=== PATIENT | male | born 1980 | race Caucasian/White ===

== ENCOUNTER 2016-09-19 17:22 | Inpatient (IN) | payer MEDICAID ==
[~2016-09-19] VITALS: Ht 170.2 cm; Wt 169.0 kg
--- NOTE | ~2016-09-19 | CO ---
ADMIT: 09/19/2016 RM/LOC: 305 [facility] MR#: [id number] [address] [address] KIRAN LIMA [address] [place] [phone] Consultation SEX: M AGE: 36 : 1980 DATE OF CONSULTATION: 09/20/2016 ATTENDING PHYSICIAN: Rom Elise CONSULTING PHYSICIAN: Isac Leon MD HISTORY OF PRESENT ILLNESS: This is a 36-year-old gentleman, date of 1980, had the previous hospitalization here and came in through the ER yesterday and got admitted. He presented with shortness of breath and chest pain. He was put on progressive care unit, but he was located in the intensive care. On admission, he had a chest x-ray, which was not very revealing, but a CT angiogram done, which did not show any pulmonary embolism, but there was a right middle lobe pneumonia. The patient has been admitted, started on Azactam and levofloxacin. His white count was markedly elevated with a white count of 22,000, which subsequently has been 33,000; hemoglobin was 17.0; normal platelets. There were no blood gases. He was showing persistent hypoxia and he was falling asleep while they were trying to put him on BiPAP. I was contacted, I suggested a chest x-ray on him to be done as stat, which was suggestive of a severe respiratory acidosis with a pH of 7.054, PCO2 was 129.5, PO2 was 93.5, bicarb 35.4 and that was on mask at 15 L. Anesthesia was called in for intubation as I came over also to see the patient. Reviewing the records, he has had several hospitalizations before. He has diagnosis of sleep apnea, has not been lately able to put the CPAP because of the insurance issues. He has been a smoker for 20 plus years already, but reportedly quit smoking a year ago. He has diagnosis of asthma. On my evaluation, he is morbidly obese, weighs over 175 kg. He was obtunded, could be aroused when I kept shouting his name and his oxygen saturation was dipping in the 40s and 50s and when he would wake up, it will come up to 90%-91%. He was bagged while Anesthesia arrived at the scene and was intubated and placed on the ventilator and has been connected to propofol for sedation. When he was awake before the intubation, he was thrashing around and appeared to be rather confused. PHYSICAL EXAMINATION: Difficult to assess, he is morbidly obese, very short thick neck, very trace edema, diminished breath sounds, no heart murmur. Abdomen very grossly protuberant. LABORATORY DATA AND IMAGING: His chemistry shows normal potassium 4.6, blood sugar 160, creatinine 1.2, albumin was 3.1, mag 2.1. The hematology showing a white count of 33.6, hemoglobin 14, platelet count 180. He has received 5 L of IV fluid in the ER. His lactate level was 0.6. His hemoglobin A1c was 6, procalcitonin was 0.42. Urine analysis showed rare bacteria, 13 white count, it was hazy. There was no drug screen. I have reviewed the chest x-ray and the CT scan, he does have a right middle lobe pneumonia. IMPRESSION: 1. Ocdkq-aj-vdcmfbr respiratory failure, hypercapnic respiratory failure, needing mechanical ventilation. 2. Diagnosis of sleep apnea. ADMIT: 09/19/2016 RM/LOC: 305 [facility] MR#: [id number] [facility] [address] [address] JANIE, KIRAN Diego [address] [address] Consultation SEX: M AGE: 36 : 1980 3. Chronic tobacco use. 4. History of asthma. 5. Morbid exogenous obesity. RECOMMENDATIONS: He will require mechanical ventilation, bronchoscopy, central IV access, adequate antibiotics, and with his previous history of respiratory failure, need for a tracheostomy. I would not be surprised if he needs the tracheostomy once again, although that will depend on how he does over the next few days with intubation. An arterial line would be necessary as well. Overall, prognosis is guarded at this time. Isac Leon MD/ cora JOB #: [id number] CC: Rom Elise, Attending Physician Rom Elise, Family Physician Rom Elise MD
[~2016-09-19 17:22] MED LIST: CLARITIN DPS10 MG PO; HABITROL DPS21 MG TP; HCTZ12.5 MG PO; PROVENTIL HFA6.7 GM IH; PROVENTIL2.5 MG/0.5 IH; TYLENOL DPS325 MG PO
--- NOTE | 2016-09-24 10:29 | OR ---
ADMIT: 09/19/2016 RM/LOC: 305 [facility] MR#: [id number] [address] [address] KIRAN LIMA [address] [place] [phone] Operative/Delivery Room Report SEX: M AGE: 36 : 1980 SURGERY DATE: 09/20/2016 SURGEON: Isac Leon MD PROCEDURE: Bronchoscopy. PREOPERATIVE DIAGNOSES: 1. Acute on chronic hypercapnic respiratory failure. 2. Right middle lobe pneumonia. 3. Exogenous obesity. 4. History of previous respiratory failure requiring intubation and tracheostomy. 5. Diagnosis of obstructive sleep apnea. The patient has been earlier intubated by Anesthesia and is on the ventilator. He continues to remain hypoxic that was the reason for the bronchoscopy. On entering the trachea, it was apparent that endotracheal tube was actually in the right mainstem. It has been retracted, and the position has been corrected. There was very marked redness of the tracheobronchial tree, and there is tracheobronchial dynamic collapse is also noted. There was some mucus, but no mucus plug identified. Thorough irrigation done, which would be submitted for microbiological and cytological studies. Findings of tracheobronchial collapse have been discussed with the patient's , who has been present at the bedside. Isac Leon MD/ kimberleyl JOB #: [id number] CC: Rom Elise, Attending Physician Rom Elise, Family Physician Rom Elise MD
--- NOTE | 2016-10-01 08:53 | CO ---
ADMIT: 09/19/2016 RM/LOC: 303 [facility] MR#: [id number] [address] [address] KIRAN KIRKLAND [address] [place] [phone] Consultation SEX: M AGE: 36 : 1980 DATE OF CONSULTATION: 09/24/2016 ATTENDING PHYSICIAN: Rom Elise CONSULTING PHYSICIAN: Brionna Bedolla APRN TIME IN: 1105 hours. TIME OUT: 1135 hours. REASON FOR CONSULTATION: Supportive care consultation was requested by Dr. Elise for discussion of goals and also to determine medical decision making. HISTORY OF PRESENT ILLNESS: Mr. Kirkland is a 36-year-old, male with history of morbid obesity, as well as a history of asthma and ongoing tobacco use. He wears supplemental oxygen and also a CPAP at home. Apparently, he had not been wearing these things consistently per the records. It is of note that he was hospitalized in March of 2015 through May of 2015 with respiratory failure, asthma, as well as pneumonia. At that time, he did end up getting a tracheostomy and PEG tube. Up until his hospital stay, it sounds like he was living at home after going through all that. He was readmitted on 09/19 with hypoxia and respiratory failure. He is being treated for pneumonia and initially on sepsis criteria. He unfortunately ended up having to be intubated due to respiratory failure. At this point, there is plans for tracheostomy in the future if he is having a hard time coming off the vent and is requiring 100% FiO2 with a PEEP 20. Over the past day or so, he has had increasing issues with hypoxia. The original plan was to go forth with a tracheostomy today or tomorrow, however, this is currently on hold until he is more stable. There has been some concerns related to the patient as he has been quite adamantly shaking his head no when the tracheostomy is being discussed. Furthermore, there is some question as to who his medical decision maker is as he is from his . Due to his complexities, supportive care consultation was requested to discuss goals for care. In terms of advanced directives, the patient is a full code. He does not have a healthcare xqoyp-ug-tqmbohgy, or living will on file. The patient is still legally to his , Mary Lou Kirkland whose phone #[phone]. When asked if they were , the patient does nod his head yes. When asked if she is the person to make medical decisions for him, he nods his head yes again. Legally because they are still she would be his next of kin legal decision maker for medical decisions. I do have a call out to Risk Management and I am awaiting call back to confirm this. Symptomatically, the patient appears comfortable on the ventilator. He does appear weak and debilitated. PAST MEDICAL HISTORY: 1. Morbid obesity. 2. Hypertension. ADMIT: 09/19/2016 RM/LOC: 303 [facility] MR#: [id number] [address] [address] KIRAN KIRKLAND [facility] [address] Consultation SEX: M AGE: 36 : 1980 3. Asthma. 4. Thyroid disorder. 5. Sleep apnea. 6. Tobacco use with a potential history of COPD per the records. ALLERGIES: THE PATIENT IS ALLERGIC TO PENICILLIN AND AMOXICILLIN. CURRENT MEDICATIONS: Please see the patient's MAR for specific routes and dosages. His current medications are as follows: 1. Milk of magnesia. 2. Precedex. 3. Dulcolax. 4. Solu-Medrol. 5. Fentanyl. 6. Vancomycin. 7. Versed. 8. Nitro-Bid. 9. Levophed. 10.NovoLog. 11.Lovenox. 12.Zestril. 13.Claritin. 14.Singulair. 15.Glutose. 16.Glucagon. 17.D5 normal saline. 18.D50. 19.Protonix. 20.Azactam. 21.Ativan. 22.Diprivan. 23.Synthroid. 24.Nitro drip. 25.Maalox. 26.Tylenol. 27.Nitrostat. 28.Motrin. 29.Levaquin. 30.DuoNeb. SOCIAL HISTORY: The patient is , but from his per Nursing report. He has a smoking history. I do not know if he uses alcohol or illicit drugs. FUNCTIONAL REVIEW: At this point, I am not able to determine what his functional status was prior to admission. There are no family at the bedside currently. Currently, he is bed-bound. He is total care. He has minimal intake. He is sedated. His current palliative performance scale is a 10% to ADMIT: 09/19/2016 RM/LOC: 303 [facility] MR#: [id number] [address] [address] KIRAN KIRKLAND [address] [place] [phone] Consultation SEX: M AGE: 36 : 1980 20%. REVIEW OF SYSTEMS: A 10-point review of systems was attempted. However, due to the patient's mentation, and status this is unable to be obtained. PHYSICAL EXAMINATION: GENERAL: The patient is examined in the bed. He is in no acute distress. VITAL SIGNS: Temperature 97.8, pulse 100, respirations 21, blood pressure 109/51, oxygen 88% on 100% FiO2 on the vent. HEENT: Head is normocephalic. Pupils are not examined. Oral mucosa pink and moist with ET tube noted. Fair dentition from my limited exam. NECK: Thick. RESPIRATORY: Respirations are equal and nonlabored on the vent. Lungs are diminished throughout. CARDIOVASCULAR: Rate and rhythm regular without murmurs, rubs, or gallops. GASTROINTESTINAL: Obese. Bowel sounds are hypoactive. GENITOURINARY: He has a Villalobos draining clear yellow urine. MUSCULOSKELETAL: Generalized weakness. No obvious joint deformities. INTEGUMENTARY: Skin turgor is fair. NEUROLOGIC: He is sedated on the ventilator, but able to nod yes and no to questions. He does seem fairly appropriate when he is nodding yes and no. He will follow commands in terms of squeezing hands. PSYCHIATRIC: Calm and cooperative. I am unable to assess insight and judgment at this time. DIAGNOSTIC DATA: Sodium 137, potassium 5.5, BUN 47, creatinine 1.3, total protein 6.3, albumin 2.6. WBC 17.2, hemoglobin 13.2, hematocrit 44.7, and platelets are 246. IMPRESSION: 1. Physical debility. 2. Fatigue. 3. Malaise. 4. Morbid obesity. 5. Low albumin. 6. Acute respiratory failure. 7. Pneumonia. 8. Obstructive sleep apnea. 9. Asthma. 10.Tobacco use. 11.Palliative care. 12.The patient is a full code. PLAN OF TREATMENT: 1. At the time of assessment, the patient is sedated on the ventilator, but as mentioned above he can answer yes and no questions nodding his head. We discussed his status and he nods his head yes in understanding of what is going on with him in terms of his respiratory status. I did discuss ADMIT: 09/19/2016 RM/LOC: 303 [facility] MR#: [id number] [address] [address] KIRAN KIRKLAND [facility] [address] Consultation SEX: M AGE: 36 : 1980 the plans for the tracheostomy and he consistently shakes his head no vigorously. As mentioned, I cannot assess his insight and judgment, therefore, I am not able to determine if he understands the full complexities of what he is saying. I was very clear with him that if he cannot get off the ventilator and if he did not want to proceed with tracheostomy then he would and he responds by shrugging his shoulders. I asked him if this means that he does not care and he nods his head yes. 2. In terms of medical decision making. As mentioned above, the patient's is still legally to him. She would be the legal next of kin. However, I am confirming this with Risk Management. I did ask the patient if he wishes for his to make medical decisions for him and he nods his head yes, but again it is very difficult to determine if he understands the complexities of what he is saying. 3. At this time, the patient's is unavailable as she is at work until 2 p.m. I will try to reach her after she gets off work to discuss the patient's status and goals for the time ahead. 4. Overall this is a tough situation. At this point, the patient does seem adamant that he does not want to have a tracheostomy, however, I cannot determine if he has the insight and judgment to make these kinds of decisions due to his sedation and slight hypoxia. I questioned if there is a potential presence of depression as well which could be clouding his judgment. At this point, the legal decision maker would need to be his in terms of the plans for the time ahead. Pending how things go in the days ahead this case may benefit from an ethics consult. 5. We will continue to follow along in the care of this kind but complicated patient. We would like to thank Dr. Elise for the invitation to participate in this patient's care. Total consultation time was 30 minute from 1105 hours 1135 hours with 15 minutes from 1110 hours to 1125 hours spent [id number] with the patient discussing status and goals for the time ahead. I will call his later today to further discuss the situation. The plan of care was discussed with nursing and we will continue to follow along in the care of this patient. Brionna Bedolla APRN/ cora JOB #: [id number] CC: Rom Elise, Attending Physician Rom Elise, Family Physician
--- NOTE | 2016-10-05 14:38 | ER ---
ADMIT: 09/19/2016 RM/LOC: 305 [facility] MR#: [id number] [address] [place], [place] [address] KIRAN LIMA [address] [place] [phone] Emergency Room Report SEX: M AGE: 36 : 1980 DATE: 09/19/2016 HISTORY OF PRESENT ILLNESS: The patient is from [place]. He presents to the emergency room. He is 36 years of age with productive cough. He says he has had pneumonia in the past. He has clear phlegm originally, but then as he coughs, he has some tint of blood in it. He has been dizzy, nausea, weakness, and diaphoretic. He points to his right chest for discomfort. He has had associated symptoms, cough, shortness of breath. REVIEW OF SYSTEMS: Positive for recent illness, pneumonia, he has some anxiety. PAST MEDICAL HISTORY: Hypertension, chronic O2 at 3 L, hypothyroidism, morbid obesity. MEDICATIONS: 1. Claritin. 2. Ibuprofen. 3. Singulair. 4. Levothyroxine. 5. Lisinopril. 6. DayQuil. 7. NyQuil. ALLERGIES: HE IS ALLERGIC TO PENICILLIN. SOCIAL HISTORY: He drinks alcohol occasionally. PHYSICAL EXAMINATION: VITAL SIGNS: Blood pressure 126/82, heart rate is 124 with respirations of 37, temp is 99.4, O2 sats 88% on room air. GENERAL: The patient is moderately anxious, but is very pleasant. HEENT: Normal inspection. NECK: Supple. RESPIRATION: Respiratory distress, rhonchi right and left. CVS: Tachycardic. ABDOMEN: Morbidly obese, nontender. SKIN: Diaphoretic. EXTREMITIES: Well perfused. No edema noted. NEURO: Oriented x4. Mood and affect are appropriate. LABORATORY DATA: Sepsis protocol immediately started when the patient was seen in the emergency room. We have right now a urine that looks like a possible source of his issue, although we do have a CT of the chest pending. The urine shows urobilinogen 2.0 with very hazy, wbc's 13, leukocytes is 1+, rbc's is 4. His INR is less than 1, his D-dimer is 2.18, white count 22,000 with a left shift. EKG shows sinus tachycardia, rate at 122. Blood cultures were done and pending report. Lactic acid is 1.4. CMP totally normal except for a carbon dioxide, which is 35. The cardiac enzymes are all within normal limits. Influenza done and it was within normal limits. Procalcitonin 0.42, ADMIT: 09/19/2016 RM/LOC: 305 [facility] MR#: [id number] [address] [address] KIRAN LMIA [address] [place] [phone] Emergency Room Report SEX: M AGE: 36 : 1980 and he is B positive Rh. Dr. Elise was contacted, but we still have some diagnostics pending and a CT. He was contacted at 2004 hours. CLINICAL IMPRESSION: 1. Hypoxia. 2. Respiratory distress. 3. Morbid obesity. 4. Urinary tract infection. 5. Moderate sepsis. Orders still pending. The patient has received in the sepsis protocol the fluids, Decadron 20 mg IV, Tylenol 1 g p.o., and the fluid resuscitation was ordered, which the start time was 1900 hours and he received 1 L. the total mLs needed for this patient is 5346. ALBERT Soria / Adis Medellin MD / cora JOB #: [id number] CC: Rom Elise MD, Attending Physician Rom Elise MD, Family Physician
[2016-10-05] MEDS ORDERED: PROVENTIL HFA6.7 GM IH (20:33)
[2016-10-05] MEDS ORDERED: LASIX DPS40 MG PO (20:33)
[2016-10-05] MEDS ORDERED: CLARITIN DPS10 MG PO (20:33)
[2016-10-05] MEDS ORDERED: MONTELUKAST SOD10 MG PO (20:33)
[2016-10-05] MEDS ORDERED: MOTRIN IB200 MG PO (20:33)
[2016-10-05] MEDS ORDERED: SYNTHROID DPS0.05 MG PO (20:33)
[2016-10-05] MEDS ORDERED: ZESTRIL DPS10 MG PO (20:33)
[2016-10-05] MEDS ORDERED: DUONEB DPS3 ML PO (20:34)
[2016-10-05] MEDS ORDERED: TYLENOL DPS325 MG PO (20:34)
[2016-10-05] MEDS ORDERED: DELTASONE DPS10 MG PO (20:34)
[2016-10-05] MEDS ORDERED: DUONEB DPS3 ML IH (20:34)
--- NOTE | 2016-10-11 19:48 | HP ---
ADMIT: 09/19/2016 RM/LOC: 305 [facility] MR#: [id number] [address] [place], [place] [address] KIRAN LIMA [address] [place] [phone] History and Physical SEX: M AGE: 36 : 1980 DATE OF SERVICE: CHIEF COMPLAINT: Increased shortness of breath, chest pain on the right side, low-grade temp with a mild productive cough. HISTORY OF PRESENT ILLNESS: When the patient arrived to the ER, he was found to be hypoxic requiring increased oxygen demand. He is on oxygen at home and usually around 3 L, but tonight he was not using it. He mentioned that sometimes he does not use it consistently even though he knows he should. The patient states that yesterday, he was feeling fine and having problems when saw the doctor in [place] and overall felt good. He also mentions that he used to use a CPAP but was having some difficulty with a mass and then due to Medicaid loss. He has not been on his CPAP in quite a while. The patient states that he has had pneumonia in the past that required mechanical ventilation and trach and PEG, and today he again felt more wheezy. So, when he got to the ER, he was found to be hypoxic and was also diagnosed with a right lower lobe pneumonia. The patient had an elevated D-dimer but a negative CTA for pulmonary embolism. The patient states he is feeling much better now that he has gotten some breathing treatments. The patient is no longer having the chest pain this severe except with the above and coughing. PAST MEDICAL HISTORY: Significant for hypertension, asthma, thyroid disorder though he cannot tell me what type of thyroid disorder, sleep apnea, morbid obesity, and then he states he thinks he has a history of COPD and emphysema as well. FAMILY HISTORY: He says he has multiple family members with cancer but is not really sure exactly of the blood line. States that his family has a very complicated history. He does mention that his grandfather had emphysema and from emphysema. SOCIAL HISTORY: He is a former smoker. Smoked 2-3 packs a day for 21 years and now has quit for at least about almost a year. PAST SURGICAL HISTORY: Significant for tonsil and adenoidectomy. Also had a trach previously for pneumonia with acute respiratory failure in 2015. ALLERGIES: INCLUDE PENICILLIN. REVIEW OF SYSTEMS: CONSTITUTIONAL: Positive for headaches. He has had no fevers and no chills. HEENT: Again positive for headache. He has had some jaw pain. No sore throat. No rhinorrhea. No nasal congestion. HEART: Some chest pain, shortness of breath. No chest palpitations. LUNGS: Positive for cough, wheezing, and shortness of breath. ABDOMEN: No abdominal pain. No nausea, vomiting, or diarrhea. EXTREMITIES: No edema. No joint pain. No erythema as well. NEURO: He has not had any seizures or stroke-like activities. ADMIT: 09/19/2016 RM/LOC: 305 [facility] MR#: [id number] [address] [address] KIRAN LIMA [facility] [place] [phone] History and Physical SEX: M AGE: 36 : 1980 PHYSICAL EXAMINATION: GENERAL: No acute distress. Mildly increased respiratory rate and is on increased oxygen. He is alert and oriented x3. Very pleasant. HEENT: Normocephalic and atraumatic. Moist mucous membranes. Extraocular muscles are intact. Nasal cannula is in place. HEART: Regular rate and rhythm. No murmur. LUNGS: Wheezing bilaterally. He had an increased rhonchi on the right side and did have this mild increased work of breathing. ABDOMEN: Soft, nontender. Positive bowel sounds. He is morbidly obese. EXTREMITIES: No edema. 2+ pulses bilaterally. No erythema in his lower extremities. NEURO: Cranial nerves II through XII are grossly intact. LABORATORY AND X-RAY DATA: Labs done in the ER. Blood cultures are pending. Lactic acid is normal at 1.4. CMP; sodium, potassium, and chloride are normal. CO2 is slightly elevated at 35. Creatinine is 1.3. Glucose is 98. Calcium is 8.8. Phos is 2.9. Alkaline phosphatase is 116. AST is 20, ALT is 50, and magnesium is 2.1. CK was 235, MB was 2, troponin is less than 0.015. Influenza A and B were negative. Procalcitonin was within normal range. CBC did show an elevated white blood cell count of 22.0, hemoglobin 17.1, and platelets were normal at 213. UA shows positive leukocyte esterase, no nitrites. He had some trace protein. He did have an elevated D-dimer at 2.18. INR is less than 1. Chest x-ray again showed the right lower lobe pneumonia. CT per discussion with the ER showed no signs of pulmonary embolism. Radiology interpretation is pending. ASSESSMENT AND PLAN: This is a 36-year-old male with acute hypoxia, cough, shortness of breath, chest pain. 1. Pneumonia. 2. Acute on chronic hypoxic respiratory failure. 3. Morbid obesity. ADMIT: 09/19/2016 RM/LOC: 305 [facility] MR#: [id number] [address] [address] KIRAN LIMA [address] [place] [address] History and Physical SEX: M AGE: 36 : 1980 4. Sepsis. 5. Hypertension. 6. Sleep apnea. 7. Asthma. 8. Thyroid disorder. We will admit the patient in the hospital PCU status. We will start him on IV steroids. We will start him on antibiotics, Levaquin and aztreonam. Also, do DuoNeb q.4 hours as needed, CPAP per home settings. We will repeat CBC, CMP, lactic acid, and procalcitonin in the morning. We will trend cardiac enzymes. We will get a repeat chest x-ray in the morning, consult Pulmonology. Low sodium diet. Activity as tolerated. Daily I's and O's. Judith Jurado MD Resident / Rom Elise MD / cora JOB #: [id number] CC: Rom Elise, Attending Physician Rom Elise, Family Physician
--- NOTE | 2016-11-25 16:24 | DS ---
ADMIT: 09/19/2016 RM/LOC: [facility] MR#: [id number] [address] [address] KIRAN LIMA [address] [place] [id number] General Discharge Summary SEX: M AGE: 36 : 1980 ADMISSION DATE: 09/19/2016 DISCHARGE DATE: 10/05/2016 CONSULT PHYSICIANS: Pulmonary and Supportive Care. PROCEDURES: Intubation, bronchoscopy, and art line. FINAL DIAGNOSES: 1. Acute respiratory failure with hypoxia requiring intubation and ventilation. 2. Left lower lobe pneumonia. 3. Morbid obesity. 4. Hypertension. 5. Sepsis. 6. Obstructive sleep. 7. Asthma. 8. Nicotine dependence. HISTORY OF PRESENT ILLNESS: The patient had a 1-day history of shortness of breath and wheeziness, and he also has a significant history of requiring intubation and a trach in the past for similar symptoms, so he decided to go to the ER to get checked out. He was found to be hypoxic with increasing O2 demand. He admitted to not being compliant with his home O2 and CPAP because he ran out of insurance. Chest x-ray in the ER showed a left lower lobe pneumonia. CTA was negative for D-dimer. The patient initially felt better after receiving some oxygen and being started on steroids, DuoNeb and antibiotics. The patient was admitted to the ICU as he felt into a deep sleep that evening. His O2 sats dropped down to the 40s. The patient was difficult to arouse other than with a sternal rub and when he would awaken, he would quickly fall back asleep dropping his sats again. It was determined that the patient was not able to keep his O2 sats on his own, so the patient was intubated early that morning of the first day. HOSPITAL COURSE: Acute respiratory failure. Due to the patient became hypoxic and more lethargic, the patient intubated and remained intubated for about 11 days. While he was intubated, there was question of whether or not the patient would benefit from a tracheostomy. Initially, it was very difficult to wean the patient from the ventilator. He continued to have multiple episodes of hypoxia sometimes requiring bag masking; however, this was difficult decision due to the patient's history of being trach, but also because the patient adamantly shook his head no when tracheotomy was being discussed in his presence. Moreover, he did not have a POA and he was currently from his ex-, who is still listed as his medical decision maker, and when discussing with the patient about if his should make medical discussions, he would nod his head yes. It was questionable whether the patient was fully understanding his decisions at this time due to being intubated having several episodes of hypoxia. Because this, supportive care was consulted to help navigate medical decision-making and goals of care. Ultimately, it was decided to wait on the tracheotomy. He did begin to ADMIT: 09/19/2016 RM/LOC: 404 [facility] MR#: [id number] [address] [place] [id number] KIRAN LIMA [address] [place] [address] General Discharge Summary SEX: M AGE: 36 : 1980 improve with his hypoxic events and is able to be extubated from the ventilator on 09/30/2016 and was switched to CPAP. He was also able to be switched from ICU status to PCU status on 10/02/2016, and ultimately discharged on 10/05/2016. Left lower lobe pneumonia. The patient was initially started on IV aztreonam, IV Levaquin, and IV steroids. Scheduled on DuoNeb and CPAP once the patient started having these de-sats and was ultimately intubated, Pulmonology was also consulted, and they helped manage both his mechanical ventilation settings as well as treatment for his pneumonia. They suggested adding IV vancomycin. He had a bronchoscopy on 09/20/2016 that did not show any mucous plugs, but did show some mucosal redness in phlegm likely mucus, but otherwise fairly normal exam. With IV antibiotics and steroids, the patient was able to improve his O2 sats and overcome the pneumonia. The patient's other past medical history, chronic health issues were also managed throughout this stay. Blood glucoses were managed with p.r.n. insulin as needed. The patient was ultimately stable and was found to be ready for discharge. DISCHARGE MEDICATIONS: Include: 1. Claritin 10 mg daily. 2. Singulair 10 mg daily. 3. Synthroid 0.05 mg tab daily. 4. Zestril DPS 10 mg daily. 5. DuoNeb q.6 hours scheduled. 6. Motrin 400 mg b.i.d. p.r.n. 7. Tylenol 650 mg p.o. q.4 hours p.r.n. 8. DuoNeb q.3 hours p.r.n. He was also sent out on a prednisone taper and CPAP for home. Code status throughout the hospital stay was full. FOLLOWUP INSTRUCTIONS: The patient is to have an appointment with his doctor in [place] in 1 week. If it is not possible for him to get in to see his PCP there, he was to see Dr. Elise in 1 week instead. The patient is to continue with home CPAP. No followup labs or imaging was decided was needed at that time. Judith Jurado MD Resident / Rom Elise MD / modl JOB #: [id number] CC: Rom Elies MD, Attending Physician Rom Elise MD, Family Physician
== END 2016-10-05 11:15 | disposition home or self-care (01) | DRG 870 ==
LOC: ER 17:22 → 3ICU 21:40 → 4PCU 10-02 17:40
PROVIDERS: ADMIT Family Medicine
PROC: 0BH17EZ Insertion of Endotracheal Airway into Trachea, Via Natural or Artificial Opening (ICD-10-PCS; principal; 2016-09-20)
PROC: 02HV33Z Insertion of Infusion Device into Superior Vena Cava, Percutaneous Approach (ICD-10-PCS; principal; 2016-09-20)
PROC: 5A1955Z Respiratory Ventilation, Greater than 96 Consecutive Hours (ICD-10-PCS; principal; 2016-09-20)
PROC: 4A133B1 Monitoring of Arterial Pressure, Peripheral, Percutaneous Approach (ICD-10-PCS; principal; 2016-09-20)
PROC: 0B938ZX Drainage of Right Main Bronchus, Via Natural or Artificial Opening Endoscopic, Diagnostic (ICD-10-PCS; principal; 2016-09-20)
DX: A41.9 Sepsis, unspecified organism (principal); J96.21 Acute and chronic respiratory failure with hypoxia; J18.9 Pneumonia, unspecified organism; J96.22 Acute and chronic respiratory failure with hypercapnia; E87.2 Acidosis; J44.0 Chronic obstructive pulmonary disease with (acute) lower respiratory infection; Z68.44 Body mass index [BMI] 60.0-69.9, adult; R65.20 Severe sepsis without septic shock; G47.33 Obstructive sleep apnea (adult) (pediatric); E66.01 Morbid (severe) obesity due to excess calories; J39.8 Other specified diseases of upper respiratory tract; F41.9 Anxiety disorder, unspecified; I10 Essential (primary) hypertension; J45.909 Unspecified asthma, uncomplicated; E03.9 Hypothyroidism, unspecified; Z99.81 Dependence on supplemental oxygen; Z87.891 Personal history of nicotine dependence

== ENCOUNTER → 2016-10-15 | Outpatient (CLI) | payer MEDICAID ==
[~2016-10-15] MED LIST changes: +DELTASONE DPS10 MG PO; +DUONEB DPS3 ML IH; +DUONEB DPS3 ML PO; +LASIX DPS40 MG PO; +MONTELUKAST SOD10 MG PO; +MOTRIN IB200 MG PO; +SYNTHROID DPS0.05 MG PO; +ZESTRIL DPS10 MG PO
== END | disposition home or self-care (01) ==
LOC: PTH.S 16:15
DX: R19.7 Diarrhea, unspecified (principal); J18.9 Pneumonia, unspecified organism

== ENCOUNTER 2016-10-24 19:05 | Emergency (ER) | payer MEDICAID ==
--- NOTE | 2016-10-27 04:09 | ER ---
ADMIT: 10/24/2016 RM/LOC: ER [facility] MR#: [id number] [address] [address] KIRAN LIMA [address] [place] [id number] Emergency Room Report SEX: M AGE: 36 : 1980 DATE: 10/24/2016 HISTORY OF PRESENT ILLNESS: The patient is a 36-year-old, morbidly obese, with cough for 1 hour. He said he felt sick suddenly with his track record of intubation and 3 times pneumonia, he decided to get checked. He said he has body aches also is negative for fever PAST MEDICAL HISTORY: Hypertension, asthma, COPD, pneumonia, emphysema, viral meningitis, respiratory failure in 2014, morbid obesity, sleep apnea, thyroid disorder. PAST SURGICAL HISTORY: T and A. ALLERGIES: HE IS ALLERGIC TO PENICILLIN. MEDICATIONS: Extensive. See T-sheet. PHYSICAL EXAMINATION: GENERAL: Worried, anxious, morbidly obese male, tachycardic. VITAL SIGNS: Heart rate 120, blood pressure 112/50, respirations 20, temp is 98.5, O2 saturations 90% to 92% on room air. He does wear CPAP at night. ABDOMEN: Obese, nontender. CVS: Tachycardic. SKIN: Good color and turgor. EXTREMITIES: Nontender. NEURO: Oriented x4. NECK: Supple. RESPIRATIONS: No distress. No crackles or wheezes. LABORATORY DATA: White count 12.9. IMAGING: Chest x-ray, normal. CLINICAL IMPRESSION: 1. Upper respiratory infection. 2. Emphysema. 3. Chronic obstructive pulmonary disease history. PLAN: He is discharged. Follow up with Dr. Elise for further care. Tylenol or Motrin. Continue home meds. Activity as tolerated. Increase fluids. Continue neb treatment. ALBERT Soria / Adis Medellin MD / cora HERNDON: 10/24/2016 21:04:50 JOB #: [id number] CC: Adis Medellin MD, Attending Physician ADMIT: 10/24/2016 RM/LOC: [facility] MR#: [id number] [address] [address] KIRAN LIMA [address] [place] [address] Emergency Room Report SEX: M AGE: 36 : 1980 Rom Elise MD, Family Physician
== END 2016-10-24 21:20 | disposition home or self-care (01) ==
LOC: ER 19:05
DX: J06.9 Acute upper respiratory infection, unspecified (principal); J43.9 Emphysema, unspecified; J45.909 Unspecified asthma, uncomplicated; I10 Essential (primary) hypertension; Z88.0 Allergy status to penicillin